=== PATIENT | male | born 1985 ===

== ENCOUNTER 2018-02-24 15:13 | Emergency (ER) | payer OTHER ==
[2018-02-24 15:14] VITALS: BMI 24.4
[2018-02-24 15:23] VITALS: BP 130/80; PULSE 75; RESP 20; TEMP 98.3; O2SAT 97
[2018-02-24] MEDS ORDERED: Bacitracin 500 Units/gm Oint Foilpak UD TOP STA (15:47)
[2018-02-24] MEDS ORDERED: Amoxicillin-Clav 875-125 mg Tab PO STA ×2 (15:47→15:48)
[2018-02-24] MEDS ORDERED: Bacitracin 500 Units/gm Oint Foilpak UD ONE (15:48)
[2018-02-24] MEDS ORDERED: Bacitracin Ointment 30 GM TUBE TOP STA (15:48)
[2018-02-24] MEDS ORDERED: Amoxicillin-Clav 875-125 mg Tab PO ONE (15:49)
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
== END 2018-02-24 15:58 | disposition home or self-care (01) ==
LOC: C.ER 15:13
DX: S01.85XA Open bite of other part of head, initial encounter (principal); Y04.1XXA Assault by human bite, initial encounter

== ENCOUNTER 2018-02-28 12:00 | Emergency (ER) | payer OTHER ==
[2018-02-28 12:01] VITALS: BMI 24.4
[2018-02-28 12:11] VITALS: O2SAT 100
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
[2018-02-28 13:33] VITALS: BP 116/72; PULSE 70; RESP 16; TEMP 98.4
== END 2018-02-28 13:33 | disposition home or self-care (01) ==
LOC: C.ER 12:00
DX: Z48.00 Encounter for change or removal of nonsurgical wound dressing (principal)

== ENCOUNTER 2018-03-29 11:17 | Emergency (ER) | payer OTHER ==
[2018-03-29 11:17] VITALS: BMI 24.4
[2018-03-29 11:33] VITALS: BP 121/75; PULSE 83; RESP 18; TEMP 98.9; O2SAT 100
[2018-03-29 11:56] LABS: URINE BACTERIA RARE (<OCC); URINE BILIRUBIN NEGATIVE (NEGATIVE); URINE BLOOD NEGATIVE (NEGATIVE); URINE CLARITY Clear (Clear); URINE COLOR Amber (YELLOW); URINE GLUCOSE (UA) NORMAL (Normal); URINE LEUKOCYTE ESTERASE NEG Leu/uL (Negative); URINE PROTEIN 1+ mg/dL (NEGATIVE)
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
== END 2018-03-29 12:30 | disposition home or self-care (01) ==
LOC: C.ER 11:17
DX: Z20.2 Contact with and (suspected) exposure to infections with a predominantly sexual mode of transmission (principal)

== ENCOUNTER 2018-04-24 08:48 | Emergency (ER) | payer OTHER ==
[2018-04-24 08:48] VITALS: BMI 24.4
[2018-04-24 08:55] VITALS: BP 116/67; PULSE 73; TEMP 98; O2SAT 97
--- NOTE | 2018-04-24 09:30 | C.PDOC ---
History Of Present Illness 33 year old male presents to the ER with new onset right lower tooth pain for the past 2 weeks, worsening for the past 2-3 days, associated with new onset right ear pain. Patient reports he is a smoker; denies Hx of prior pain to the tooth or trauma. Patient also complaints of cough and chest congestion for the past 5 days, associated with subjective fever and chills. Denies SOB or wheezing. NEW ONSET R LOWER TOOTH PAIN X 2 WKS, WORSENING X 2-3 DAYS. +NEW ONSET R EAR PAIN. DENIES PRIOR HO PAIN TO THIS TOOTH. NEG TRAUMA. +SMOKER. ALSO CO COUGH, CHEST SUJATA X 5 DAYS. SUBJ FEVER, CHILLS. NO SOB, WHEEZE. EXAM NONTOXIC NAD HEENT R 2ND MOLAR BOTTOM +MILD TEND +GUM SWELLING, INFLAM. NO ABSCESS. R EAR WNL. NO FACIAL SWELL. LUNGS CTA B/L NO W/R/R REMAINDER NEG MDM ADVISED NEED FOR DENTIST, OTC PAIN RX, ABX, STOP SMOKING. Time Seen by Provider: 04/24/18 09:19 Chief Complaint (Nursing): Cough, Cold, Congestion History Per: Patient History/Exam Limitations: no limitations Onset/Duration Of Symptoms: Days Current Symptoms Are (Timing): Still Present Recent travel outside of the [place]: No Past Medical History Reviewed: Historical Data, Nursing Documentation, Vital Signs Vital Signs: Last Vital Signs Temp 98 F 04/24/18 08:51 Pulse 73 04/24/18 08:51 Resp 18 04/24/18 09:39 BP 116/67 04/24/18 08:51 Pulse Ox 97 04/24/18 09:31 - Medical History PMH: No Chronic Diseases Surgical History: No Surg Hx - [facility] Procedures APPLICATION OF SPLINT (06/21/14) Family History: States: Unknown Family Hx - Social History Hx Tobacco Use: Yes Hx Alcohol Use: Yes Hx Substance Use: Yes - Immunization History Hx Tetanus Toxoid Vaccination: Yes (04/2017) Hx Influenza Vaccination: Yes Hx Pneumococcal Vaccination: No Review Of Systems Except As Marked, All Systems Reviewed And Found Negative. Constitutional: Positive for: Fever (Subjective), Chills (Subjective) ENT: Positive for: Ear Pain, Mouth Pain Respiratory: Positive for: Cough, Other (Chest congestion). Negative for: Shortness of Breath, Wheezing Physical Exam - Physical Exam Appears: Non-toxic Skin: Normal Color, Warm, Dry Head: Atraumatic, Normacephalic, No Other (Facial swelling) Eye(s): bilateral: Normal Inspection Ear(s): Bilateral: Normal Nose: Normal Oral Mucosa: Moist Teeth: Other (Right 2nd bottom molar with mild tenderness) Gingiva: No Abscess, Other (Right 2nd bottom molar with swelling/inflammation) Throat: Normal, No Erythema, No Exudate Neck: Normal, Supple Chest: Symmetrical, No Tenderness Cardiovascular: Rhythm Regular Respiratory: Normal Breath Sounds, No Rales, No Rhonchi, No Wheezing Extremity: Normal ROM (x4) Neurological/Psych: Oriented x3, Normal Speech ED Course And Treatment O2 Sat by Pulse Oximetry: 97 (Room air) Pulse Ox Interpretation: Normal Medical Decision Making Medical Decision Making: ADVISED NEED FOR DENTIST, OTC PAIN RX, ABX, STOP SMOKING. Disposition Counseled Patient/Family Regarding: Diagnosis, Need For Followup, Rx Given, Smoking Cessation - Disposition Referrals: Replaced By [facility] [Outside] [facility] [Outside] [facility],DENTIST [Other] Disposition: HOME/ ROUTINE Disposition Time: 09:29 Condition: GOOD Prescriptions: Amoxicillin [Amoxil 500 mg Cap] 500 mg PO BID #14 cap Benzonatate [Tessalon Perles] 200 mg PO TID PRN #15 sgl PRN Reason: Cough Ibuprofen [Motrin] 600 mg PO Q6 #30 tab Instructions: Dental Pain (DC), Upper Respiratory Infection (ED) Forms: [facility] (Upper Sorbian) - Clinical Impression Clinical Impression: Dentalgia, Bronchitis - Scribe Statement The provider has reviewed the documentation as recorded by the Scribchavez Martinez All medical record entries made by the Scribe were at my direction and personally dictated by me. I have reviewed the chart and agree that the record accurately reflects my personal performance of the history, physical exam, medical decision making, and the department course for this patient. I have also personally directed, reviewed, and agree with the discharge instructions and disposition.
[2018-04-24 09:39] VITALS: RESP 18
== END 2018-04-24 09:39 | disposition home or self-care (01) ==
LOC: C.ER 08:48
DX: J40 Bronchitis, not specified as acute or chronic (principal); K08.89 Other specified disorders of teeth and supporting structures; F17.210 Nicotine dependence, cigarettes, uncomplicated

== ENCOUNTER 2018-05-28 11:51 | Emergency (ER) | payer OTHER ==
[2018-05-28 11:51] VITALS: BMI 24.4
[2018-05-28 12:04] VITALS: BP 122/70; PULSE 78; RESP 18; TEMP 98.2; O2SAT 98
[2018-05-28] MEDS: Bacitracin 500 Units/gm Oint Foilpak UD TOP ONE (12:54)
[2018-05-28] MEDS: Amoxicillin-Clav 875-125 mg Tab PO STA (12:54)
[2018-05-28] MEDS ORDERED: Amoxicillin-Clav 875-125 mg Tab PO ONE (12:56)
--- NOTE | 2018-05-28 13:10 | C.PDOC ---
History Of Present Illness 33 y/o male, no PNHx, reports to the emergency department with complaints of pain to the left upper tooth since 2 days ago. Patient states that he has a dentist appointment next week, however, the pain continued. He states that he thinks he needs antibiotics. Patient also notes of a sustained cut to right palm after he fell off his skateboard 3 days ago. He says he has been cleaning the wound but it got worse, prompting the visit. Patient denies any fever, numbness, or weakness. Time Seen by Provider: 05/28/18 12:09 Chief Complaint (Nursing): Abnormal Skin Integrity History Per: Patient History/Exam Limitations: no limitations Onset/Duration Of Symptoms: Days Current Symptoms Are (Timing): Still Present Past Medical History Reviewed: Historical Data, Nursing Documentation, Vital Signs Vital Signs: Last Vital Signs Temp 98.2 F 05/28/18 12:02 Pulse 78 05/28/18 12:02 Resp 18 05/28/18 12:02 BP 122/70 05/28/18 12:02 Pulse Ox 98 05/28/18 13:29 - [facility] Procedures APPLICATION OF SPLINT (06/21/14) Family History: States: Unknown Family Hx - Social History Hx Tobacco Use: Yes Hx Alcohol Use: No Hx Substance Use: No - Immunization History Hx Tetanus Toxoid Vaccination: No Hx Influenza Vaccination: No Hx Pneumococcal Vaccination: No Review Of Systems Except As Marked, All Systems Reviewed And Found Negative. Constitutional: Negative for: Fever, Chills Skin: Positive for: Lesions (to right palm ) Neurological: Negative for: Weakness, Numbness Physical Exam - Physical Exam Appears: Well, Non-toxic Skin: Warm, Dry, No Rash Head: Atraumatic, Normacephalic Oral Mucosa: Moist Teeth: Tender To Palpation (to left upper 2nd molar; tooth is cracked, no swelling ) Neck: Supple Extremity: Normal ROM (of hand and wrist), Capillary Refill (less than 2 seconds ), Other (1.5cm skin avulsion to the proximal right palm with no drainage, no erythema, and no tenderness ) Pulses: Left Radial: Normal, Right Radial: Normal Neurological/Psych: Oriented x3, Normal Speech Gait: Steady ED Course And Treatment O2 Sat by Pulse Oximetry: 98 (RA) Pulse Ox Interpretation: Normal Medical Decision Making Medical Decision Making: Impression: Left upper dental pain, skin laceration to right palm Plan: --Augmentin 1 tab PO --Bacitracin TOP Disposition Counseled Patient/Family Regarding: Diagnosis, Need For Followup, Rx Given - Disposition Referrals: [facility] [Outside] Disposition: HOME/ ROUTINE Disposition Time: 13:08 Condition: GOOD Additional Instructions: Follow up with the dentist within 1-2 days. Return if worsened. Prescriptions: Amoxicillin [Amoxil 500 mg Cap] 500 mg PO TID #29 cap Bacitracin Ointment [Bacitracin] 30 gm TOP BID #1 tube Instructions: Wound Care (DC), Tooth Decay, Adult (DC) Forms: [employer] (Yi) - Clinical Impression Clinical Impression: Skin avulsion, Dental caries - PA / PATTERN ATTENDANT / Resident Statement MD/DO has reviewed & agrees with the documentation as recorded. - Scribe Statement The provider has reviewed the documentation as recorded by the Scribe (Shana Chavarria) All medical record entries made by the Scribe were at my direction and personally dictated by me. I have reviewed the chart and agree that the record accurately reflects my personal performance of the history, physical exam, medical decision making, and the department course for this patient. I have also personally directed, reviewed, and agree with the discharge instructions and disposition.
== END 2018-05-28 13:21 | disposition home or self-care (01) ==
LOC: C.ER 11:51
DX: S61.401A Unspecified open wound of right hand, initial encounter (principal); V00.131A Fall from skateboard, initial encounter; Y93.51 Activity, roller skating (inline) and skateboarding; K02.9 Dental caries, unspecified; Z72.0 Tobacco use

== ENCOUNTER 2018-08-28 11:39 | Emergency (ER) | payer OTHER ==
[2018-08-28 11:39] VITALS: BMI 24.4
[2018-08-28 11:55] VITALS: BP 104/63; PULSE 86; RESP 18; TEMP 98.5; O2SAT 96
--- NOTE | 2018-08-28 12:59 | C.PDOC ---
History Of Present Illness 33 year old male presents to ED for evaluation of a cough, runny nose and chest congestion that has been getting worse for the past week. Patient reports taking a tablet of amoxicillin this morning for symptoms. Denies fever, chills, cough, shortness of breath, nausea, vomiting, diarrhea, weakness, numbness. Time Seen by Provider: 08/28/18 12:04 Chief Complaint (Nursing): Cough, Cold, Congestion History Per: Patient History/Exam Limitations: no limitations Onset/Duration Of Symptoms: Days Current Symptoms Are (Timing): Still Present Past Medical History Reviewed: Historical Data, Nursing Documentation, Vital Signs Vital Signs: Last Vital Signs Temp 98.5 F 08/28/18 11:53 Pulse 86 08/28/18 11:53 Resp 18 08/28/18 11:53 BP 104/63 08/28/18 11:53 Pulse Ox 96 08/28/18 11:53 Surgical History: No Surg Hx - [facility] Procedures APPLICATION OF SPLINT (06/21/14) Family History: States: No Known Family Hx - Social History Hx Tobacco Use: Yes Hx Alcohol Use: No Hx Substance Use: No - Immunization History Hx Tetanus Toxoid Vaccination: No Hx Influenza Vaccination: No Hx Pneumococcal Vaccination: No Review Of Systems Except As Marked, All Systems Reviewed And Found Negative. Constitutional: Negative for: Fever, Chills ENT: Positive for: Other (Sinus infection) Respiratory: Negative for: Cough, Shortness of Breath Gastrointestinal: Negative for: Nausea, Vomiting, Diarrhea Neurological: Negative for: Weakness, Numbness Physical Exam - Physical Exam Appears: Non-toxic, No Acute Distress Skin: Warm, Dry, No Rash Head: Atraumatic, Normacephalic Eye(s): bilateral: PERRL, EOMI Ear(s): Bilateral: Normal Oral Mucosa: Moist Throat: Normal, No Erythema, No Exudate Neck: Normal ROM, Supple Chest: Symmetrical, No Deformity Cardiovascular: Rhythm Regular, No Murmur Respiratory: Normal Breath Sounds, No Rales, No Rhonchi, No Wheezing Gastrointestinal/Abdominal: Soft, No Tenderness Back: Normal Inspection, No CVA Tenderness Extremity: Normal ROM, No Swelling Neurological/Psych: Oriented x3, Normal Speech, Normal Motor Gait: Steady ED Course And Treatment O2 Sat by Pulse Oximetry: 96 (RA) Pulse Ox Interpretation: Normal Medical Decision Making Medical Decision Making: Plan: * Claritin * Zithromax * Prednisone Disposition - Disposition Referrals: [facility] [Outside] Disposition: HOME/ ROUTINE Disposition Time: 12:59 Condition: STABLE Additional Instructions: Follow up with the medical doctor within 1-2 days without fail. Return if worsened. Prescriptions: Azithromycin [Zithromax] 250 mg PO DAILY #4 tab Ibuprofen [Motrin] 600 mg PO TID #21 tab Loratadine [Claritin] 10 mg PO DAILY #10 tab predniSONE [Prednisone] 20 mg PO BID #10 tab Instructions: Acute Bronchitis Forms: [email or web address] (Andorran) - Clinical Impression Clinical Impression: Bronchitis - PA / RESPIRATORY CARE TECHNICIAN / Resident Statement MD/DO has reviewed & agrees with the documentation as recorded. - Scribe Statement The provider has reviewed the documentation as recorded by the Scribe Dean Cabello All medical record entries made by the Leesaibchavez were at my direction and personally dictated by me. I have reviewed the chart and agree that the record accurately reflects my personal performance of the history, physical exam, medical decision making, and the department course for this patient. I have also personally directed, reviewed, and agree with the discharge instructions and disposition.
== END 2018-08-28 13:06 | disposition home or self-care (01) ==
LOC: C.ER 11:39
DX: J40 Bronchitis, not specified as acute or chronic (principal); Z72.0 Tobacco use